=== PATIENT | female | born 1985 | race Caucasian/White ===

== ENCOUNTER 2017-09-10 09:58 | Emergency (ER) | payer OTHER ==
[~2017-09-10] VITALS: Ht 160 cm; Wt 55.3 kg
[2017-09-10 10:04] VITALS: TEMP 36.8; Ht 160 cm; Wt 55.3 kg
--- NOTE | 2017-09-10 10:53 | EMERGENCY ROOM VISIT NOTE ---
History Report prepared by Kirk: Ni Cueva Under the Supervision of: Dr. Yue Roy M.D. First contact with patient: 10:42 Chief Complaint: GI ASSESSMENT Stated Complaint: VOMITING BLOOD,JT PAIN, BLOOD IN STOOL, FEVER Nursing Triage Summary: Pt reports, "I've had multiple sx since Thu. I have a hx of digestive and bowel problems. I have a dr appt tomorrow, but my sx have been getting worse. I either have diarrhea or I can't go. Fri I spent two hrs in the bathroom trying to go to the point that I passed out and some of my rectum came out. There is a lot of blood. There was one week it was really heavy. I didn't freak out too much because I thought it was hemorrhoids. I get pain around my rib cage. I don't get problems with acid, but sometimes when I eat I throw up. I left work early the other day because I was vomiting some blood. They tested my three times for Lymes because I get joint pain." History of Present Illness The patient is a 31 year old female who presents to the Emergency Room with complaints of worsening GI symptoms beginning 2 days ago. The patient reports that she tried to go to the bathroom for two hours because she could feel her bowels moving, but was unable to defecate. She reports that she then passed out and that some of her rectum "came out" and that there was a lot of blood. The patient also reports having blood in her stool, as well as diarrhea, and normal bowel movements. She also states that she vomited blood. The patient reports a history of digestive and bowel problems. She also reports that she has had multiple testings for Lyme Disease due to joint pain. Source of History: patient Onset: 2 days ago Position: abdomen Quality: other (GI symptoms ) Timing: worsening Associated Symptoms: + vomiting (blood), + diarrhea Review of Systems See HPI for pertinent positives & negatives. A total of 10 systems reviewed and were otherwise negative. Past Medical & Surgical Medical Problems: (1) Bronchitis (2) Chronic joint pain (3) Chronic pelvic inflammatory disease (4) Diabetes mellitus (5) irritable bowel syndrome (6) Ovarian cyst Family History Cancer Diabetes mellitus Gallbladder disease Hypertension Kidney disease Social History Smoking Status: Current Every Day Smoker Alcohol Use: none Drug Use: none Marital Status: single Housing Status: lives with family, lives with roommate Occupation Status: employed Current/Historical Medications Scheduled Amphetamine-Dextroamphetamine 25MG (Adderall Xr 25MG), 1 CAP PO QAM Scheduled PRN Dicyclomine Hcl (Bentyl), 10 MG PO Q6 PRN for abdominal spasm Allergies Coded Allergies: No Known Allergies (Unverified , 09/10/17) Physical Exam Vital Signs Date Time Temp Pulse Resp B/P (MAP) Pulse Ox O2 Delivery O2 Flow Rate FiO2 09/10/17 14:58 84 118/52 98 09/10/17 13:00 79 15 114/68 100 Room Air 09/10/17 12:26 78 09/10/17 10:04 36.8 102 18 126/79 99 Room Air Physical Exam Vital signs reviewed. General: Well-appearing female , in no significant distress. HEENT: No scleral icterus, PERRLA, neck supple. Atraumatic. Cardiovascular: Regular rate and rhythm, no extra sounds. Pulmonary: Clear to auscultation bilaterally, normal work of breathing. Abdomen: Soft, mild left-sided tenderness, nondistended, positive bowel sounds. Musculoskeletal: Atraumatic, no peripheral edema. Neurologic: Patient awake alert and oriented x 3 Skin: Warm, dry, no rash Rectal: Guaiac negative. Medical Decision & Procedures ER Provider Diagnostic Interpretation: Radiology results as stated below per my review and radiologist interpretation: CHEST AND ABDOMEN 2 VIEWS HISTORY: Generalized abdominal pain. COMPARISON: Chest and abdominal series 03/11/2013. FINDINGS: The lungs are clear. The cardiomediastinal silhouette is within normal limits. There is no pneumoperitoneum or pneumatosis. The bowel gas pattern is unremarkable. No evidence for bowel obstruction. No renal or ureteral calculi identified. Punctate calcifications in the deep pelvis are consistent with phleboliths. There is a tampon present. Small to moderate amount of well-formed stool seen within the colon. IMPRESSION: No acute cardiopulmonary process. No evidence for bowel obstruction. Small to moderate amount well-formed stool seen within the colon. Electronically signed by: Edmar Alvarado M.D. 09/10/2017 1:13 PM Dictated Date/Time: 09/10/2017 1:09 PM Laboratory Results 09/10/17 11:25 Red Blood Count 4.56, Mean Corpuscular Volume 90.6, Mean Corpuscular Hemoglobin 31.4, Mean Corpuscular Hemoglobin Concent 34.6, Mean Platelet Volume 11.2, Neutrophils (%) (Auto) 54.4, Lymphocytes (%) (Auto) 31.3, Monocytes (%) (Auto) 10.6, Eosinophils (%) (Auto) 3.1, Basophils (%) (Auto) 0.6, Neutrophils # (Auto ) 1.95, Lymphocytes # (Auto) 1.12, Monocytes # (Auto) 0.38, Eosinophils # (Auto ) 0.11, Basophils # (Auto) 0.02 09/10/17 11:25 Test 09/10/17 11:25 White Blood Count 3.58 K/uL (4.8-10.8) Red Blood Count 4.56 M/uL (4.2-5.4) Hemoglobin 14.3 g/dL (12.0-16.0) Hematocrit 41.3 % (37-47) Mean Corpuscular Volume 90.6 fL (80-100) Mean Corpuscular Hemoglobin 31.4 pg (25-34) Mean Corpuscular Hemoglobin Concent 34.6 g/dl (32-36) Platelet Count 178 K/uL (130-400) Mean Platelet Volume 11.2 fL (7.4-10.4) Neutrophils (%) (Auto) 54.4 % Lymphocytes (%) (Auto) 31.3 % Monocytes (%) (Auto) 10.6 % Eosinophils (%) (Auto) 3.1 % Basophils (%) (Auto) 0.6 % Neutrophils # (Auto) 1.95 K/uL (1.4-6.5) Lymphocytes # (Auto) 1.12 K/uL (1.2-3.4) Monocytes # (Auto) 0.38 K/uL (0.11-0.59) Eosinophils # (Auto) 0.11 K/uL (0-0.5) Basophils # (Auto) 0.02 K/uL (0-0.2) RDW Standard Deviation 41.0 fL (36.4-46.3) RDW Coefficient of Variation 12.4 % (11.5-14.5) Immature Granulocyte % (Auto) 0.0 % Immature Granulocyte # (Auto) 0.00 K/uL (0.00-0.02) Anion Gap 6.0 mmol/L (3-11) Est Creatinine Clear Calc Drug Dose 127.1 ml/min Estimated GFR () 147.8 Estimated GFR (Non- 127.5 BUN/Creatinine Ratio 17.5 (10-20) Calcium Level 9.0 mg/dl (8.5-10.1) Total Bilirubin 0.3 mg/dl (0.2-1) Direct Bilirubin < 0.1 mg/dl (0-0.2) Aspartate Amino Transf (AST/SGOT) 15 U/L (15-37) Alanine Aminotransferase (ALT/SGPT) 20 U/L (12-78) Alkaline Phosphatase 63 U/L (45-117) Total Protein 7.6 gm/dl (6.4-8.2) Albumin 3.7 gm/dl (3.4-5.0) Lipase 75 U/L (73-393) Laboratory results per my review. Medications Administered Medications (Trade) Dose Ordered Sig/Ammy Route Start Time Stop Time Status Last Admin Dose Admin Sodium Chloride 1,000 ml @ 999 mls/hr Q1H1M STAT IV 09/10/17 11:04 09/10/17 12:04 DC 09/10/17 11:52 999 MLS/HR Ketorolac Tromethamine (Toradol Inj) 30 mg NOW STAT IV 09/10/17 11:04 09/10/17 11:07 DC 09/10/17 11:52 30 MG Ondansetron HCl (Zofran Inj) 4 mg NOW STAT IV 09/10/17 11:04 09/10/17 11:07 DC 09/10/17 11:52 4 MG ED Course 1045: Past medical records reviewed. The patient was evaluated in room B12A. A complete history and physical examination was performed. 1104: Ordered Zofran Inj 4 mg IV, Toradol Inj 30 mg IV, Sodium Chloride 1,000 ml @ 999 mls/hr IV. 1445: Upon reevaluation, the patient appeared to have improvement of her symptoms. I discussed findings with her. She verbalized agreement of the treatment plan. She was discharged home. Medical Decision Differentials include: inflammatory bowel disease, small bowel obstruction, viral illness, gastritis, peptic ulcer, pancreatitis, and food borne illness. This pt was evaluated and appeared to be in no distress. IV access was obtained and lab work was drawn. Abd XR series is negative for obstruction or FA. Stool guaiac is negative. Pt felt improved with IV zofran and toradol. She was given a Rx for bentyl 10 mg tabs. She was encouarged to increase the fiber and wateer in her diet. Pt will f.u with gastroenterology for reevaluation. Pt will return to the ED for worsening of symptoms or any medical concerns. Medication Reconcilliation Current Medication List: was personally reviewed by me Blood Pressure Screening Patient's blood pressure: Normal blood pressure Impression Primary Impression: Irritable bowel syndrome Scribe Attestation The scribe's documentation has been prepared under my direction and personally reviewed by me in its entirety. I confirm that the note above accurately reflects all work, treatment, procedures, and medical decision making performed by me. Departure Information Dispostion Home / Self-Care Prescriptions Dicyclomine Hcl (BENTYL) 10 Mg Cap 10 MG PO Q6 Y for abdominal spasm, #30 CAP Prov: Yue Roy M.D. 09/10/17 Referrals No Doctor, Assigned (PCP) Sherry Mclaughlin M.D. Forms HOME CARE DOCUMENTATION FORM, IMPORTANT VISIT INFORMATION Patient Instructions My [facility] Additional Instructions Diagnosis: Irritable bowel syndrome Please follow-up with gastroenterology for further evaluation. Bentyl 10 mg every 6 hours as needed for abdominal spasm. Increase the fiber and water in your diet. Return to the emergency department for worsening of symptoms or any medical concerns.
[2017-09-10] MEDS ORDERED: ONDANSETRON INJ 2 MG/ML 2 ML VIAL IV STA (11:04)
[2017-09-10] MEDS ORDERED: SODIUM CHLORIDE 0.9% 1000ML 1,000 ML IV STA (11:04)
[2017-09-10] MEDS ORDERED: KETOROLAC TROMETHAMINE 30 MG/ML VIAL IV STA (11:04)
[2017-09-10] MEDS ORDERED: AMPH25CA PO (11:16)
[2017-09-10 12:01] LABS: BASO % 0.6 %; BASO ABS # 0.02 K/uL (0-0.2); EOS % 3.1 %; EOS ABS # 0.11 K/uL (0-0.5); HEMATOCRIT 41.3 % (37-47); HEMOGLOBIN 14.3 g/dL (12.0-16.0); LYMPH % 31.3 %; LYMPH ABS # 1.12 K/uL (1.2-3.4); MEAN CELL VOLUME 90.6 fL (80-100); MEAN CORPUSCULAR HEMOGLOBIN 31.4 pg (25-34); MEAN CORPUSCULAR HGB CONC 34.6 g/dl (32-36); MEAN PLATELET VOLUME 11.2 fL (7.4-10.4); MONO % 10.6 %; MONO ABS # 0.38 K/uL (0.11-0.59); NEUT % 54.4 %; NEUT ABS # 1.95 K/uL (1.4-6.5); PLATELET COUNT 178 K/uL (130-400); RED CELL DISTRIBUTION WIDTH CV 12.4 % (11.5-14.5); WHITE BLOOD COUNT 3.58 K/uL (4.8-10.8)
[2017-09-10 12:04] LABS: ALBUMIN 3.7 gm/dl (3.4-5.0); ALT/SGPT 20 U/L (12-78); BLOOD UREA NITROGEN 9 mg/dl (7-18); CARBON DIOXIDE 28 mmol/L (21-32); CREATININE 0.54 mg/dl (0.60-1.20); GLUCOSE 87 mg/dl (70-99); LIPASE 75 U/L (73-393); POTASSIUM 3.8 mmol/L (3.5-5.1); SODIUM 141 mmol/L (136-145)
[2017-09-10 12:07] LABS: ALKALINE PHOSPHATASE 63 U/L (45-117); AST/SGOT 15 U/L (15-37); TOTAL PROTEIN 7.6 gm/dl (6.4-8.2)
--- NOTE | 2017-09-10 13:14 | DIAGNOSTIC IMAGING REPORT ---
CHEST AND ABDOMEN 2 VIEWS HISTORY: Generalized abdominal pain. COMPARISON: Chest and abdominal series 03/11/2013. FINDINGS: The lungs are clear. The cardiomediastinal silhouette is within normal limits. There is no pneumoperitoneum or pneumatosis. The bowel gas pattern is unremarkable. No evidence for bowel obstruction. No renal or ureteral calculi identified. Punctate calcifications in the deep pelvis are consistent with phleboliths. There is a tampon present. Small to moderate amount of well-formed stool seen within the colon. IMPRESSION: No acute cardiopulmonary process. No evidence for bowel obstruction. Small to moderate amount well-formed stool seen within the colon. Electronically signed by: Edmar Alvarado M.D. 09/10/2017 1:13 PM Dictated Date/Time: 09/10/2017 1:09 PM
[2017-09-10] MEDS ORDERED: DICY10CA55 PO (14:30)
[2017-09-10 14:58] VITALS: BP 118/52; PULSE 84; O2SAT 98
== END 2017-09-10 14:55 | disposition home or self-care (01) ==
LOC: C.EDB 10:00
DX: K58.2 Mixed irritable bowel syndrome (principal); M25.50 Pain in unspecified joint; G89.29 Other chronic pain; N73.1 Chronic parametritis and pelvic cellulitis; E11.9 Type 2 diabetes mellitus without complications; F17.200 Nicotine dependence, unspecified, uncomplicated; Z80.9 Family history of malignant neoplasm, unspecified; Z83.3 Family history of diabetes mellitus; Z83.79 Family history of other diseases of the digestive system; Z82.49 Family history of ischemic heart disease and other diseases of the circulatory system; Z84.1 Family history of disorders of kidney and ureter